=== PATIENT | female | born 2000 | race Caucasian/White ===

== ENCOUNTER 2021-03-03 12:16 | Emergency (ER) | payer MEDICAID ==
[~2021-03-03] VITALS: Ht 165.1 cm; Wt 77.0 kg
[2021-03-03] MEDS ORDERED: TETANUS, DIPHTHERIA, PERTUSSIS VAC/PF 0.5ML (>7YR OLD) IM ONE (13:45)
[2021-03-03] MEDS ORDERED: BACITRACIN 15GM TUBE TOP ONE (13:45)
[2021-03-03] MEDS ORDERED: BACITRACIN ZINC OINT UDPKT TOP SCH (14:00)
[2021-03-03 15:05] LABS: BASOPHILS % 0.8 % (0.0-2.0); EOSINOPHILS % 0.4 % (0.0-5.0); HEMATOCRIT. 38.7 % (36.0-48.0); HEMOGLOBIN. 13.3 g/dL (12.0-16.0); LYMPHOCYTES % 29.7 % (20.0-50.0); MEAN CORPUSCULAR HEMOGLOBIN 30.6 pg (28.0-32.0); MEAN CORPUSCULAR VOLUME 89.2 fL (81.0-99.0); MEAN PLATELET VOLUME 9.2 fl (7.4-10.4); NEUTROPHILS % 64.1 % (40.0-76.0); PLATELET 201 x1000/uL (130-400); RED BLOOD CELL COUNT 4.34 mill/uL (4.2-5.4); RED CELL DISTRIBUTION WIDTH 12.7 % (11.6-14.6)
[2021-03-03 15:15] LABS: CHLORIDE 110 mEq/L (98-107)
[2021-03-03 15:21] LABS: ETHANOL BLOOD < 10 mg/dL
[2021-03-03 15:32] LABS: HCG SCREEN NEGATIVE
[2021-03-03 17:50] VITALS: BP 110/70
== END 2021-03-03 17:56 | disposition left against medical advice (07) ==
LOC: ER 13:39
DX: S61.512A Laceration without foreign body of left wrist, initial encounter (principal); S61.511A Laceration without foreign body of right wrist, initial encounter; W26.0XXA Contact with knife, initial encounter; X78.9XXA Intentional self-harm by unspecified sharp object, initial encounter; F41.8 Other specified anxiety disorders; F43.0 Acute stress reaction; S40.022A Contusion of left upper arm, initial encounter; Y07.11 Biological father, perpetrator of maltreatment and neglect; Y04.2XXA Assault by strike against or bumped into by another person, initial encounter; Y93.89 Activity, other specified; F15.20 Other stimulant dependence, uncomplicated; Z62.820 Parent-biological child conflict; Z63.79 Other stressful life events affecting family and household; Y92.018 Other place in single-family (private) house as the place of occurrence of the external cause
CPT/HCPCS: 36415; 80053; 80307; 80320; 80329; 84703; 85025; 99283; G0480